=== PATIENT | female | born 2000 | race Caucasian/White ===

== ENCOUNTER → 2024-01-21 | Outpatient (REF) | LOC: M EMP 07:57 | PROVIDERS: ATTEND Family Medicine | DX: Z11.52 Encounter for screening for COVID-19 (principal) ==

== ENCOUNTER → 2024-02-28 | Outpatient (REF) | payer SELFPAY | LOC: M LAB REF 16:02 | PROVIDERS: ATTEND Nurse Practitioner Women's Health | DX: F64.9 Gender identity disorder, unspecified (principal) ==

== ENCOUNTER → 2024-11-09 | Outpatient (REF) | LOC: M EMP 13:47 | PROVIDERS: ATTEND Family Medicine | DX: Z11.52 Encounter for screening for COVID-19 (principal) ==

== ENCOUNTER → 2024-11-24 | Outpatient (REF) | payer BC ==
[2024-11-24 10:08] LABS: BASO # 0.2 10^3/uL (0.0-0.2); BASO % 1.9 % (0.0-1.0); EOS # 0.3 10^3/uL (0.0-0.5); EOS % 3.9 % (0.0-3.0); LYMPH # 2.6 10^3/uL (1.5-5.0); LYMPH % 32.5 % (24.0-44.0); MONO # 0.7 10^3/uL (0.0-0.8); MONO % 8.5 % (2.0-8.0); NEUTROPHILS # 4.2 10^3/uL (1.5-8.5); NEUTROPHILS % 52.9 % (36.0-66.0); PLATELET COUNT, AUTOMATED 262 10^3/uL (150-450)
[2024-11-24 10:38] LABS: ALT/SGPT 19.0 U/L (7.0-40); AST/SGOT 22.0 U/L (<34); CALCIUM LEVEL 9.2 MG/DL (8.5-10.1); CARBON DIOXIDE LEVEL 30.0 MMOL/L (20-31); CHLORIDE LEVEL 104.0 MMOL/L (98-107); CREATININE FOR GFR 0.91 MG/DL (0.55-1.30); GLOMERULAR FILTRATION RATE 89.8 (>60); POTASSIUM SERUM 4.3 MMOL/L (3.5-5.1); SODIUM LEVEL 143.0 MMOL/L (136-145)
[2024-11-24 10:41] LABS: FREE T4 1.15 NG/DL (0.89-1.76)
== END ==
LOC: M LAB REF 09:41
PROVIDERS: ATTEND Physician Assistant Medical
DX: R05.3 Chronic cough (principal); R06.02 Shortness of breath

== ENCOUNTER → 2025-01-25 | Outpatient (CLI) | payer BC | LOC: M CLY 14:18 | PROVIDERS: ATTEND Physician Assistant Medical | DX: R05.3 Chronic cough (principal) ==

== ENCOUNTER → 2025-02-14 | Outpatient (CLI) | payer BC | LOC: M CARPUL 15:05 | PROVIDERS: ATTEND Physician Assistant Medical | DX: R06.02 Shortness of breath (principal) ==